=== PATIENT | female | born 1975 | race African-American/Black ===

== ENCOUNTER 2016-06-25 00:29 | Emergency (ER) | payer SELFPAY ==
[~2016-06-25] VITALS: Ht 160 cm; Wt 59.0 kg
[2016-06-25] MEDS ORDERED: IBUPROFEN 600MG TABLET PO ONE (06:00)
[2016-06-25 07:12] VITALS: BP 114/73
== END 2016-06-25 08:00 | disposition home or self-care (01) ==
LOC: ER 07:26
DX: M25.552 Pain in left hip (principal); M25.512 Pain in left shoulder; R07.89 Other chest pain; M79.644 Pain in right finger(s); F17.200 Nicotine dependence, unspecified, uncomplicated; V89.2XXA Person injured in unspecified motor-vehicle accident, traffic, initial encounter; Y93.89 Activity, other specified; Y92.89 Other specified places as the place of occurrence of the external cause; Y99.8 Other external cause status
CPT/HCPCS: 72040; 73030; 81025; 99284

== ENCOUNTER 2018-03-31 02:38 | Emergency (ER) | payer SELFPAY ==
[~2018-03-31] VITALS: Ht 157.5 cm; Wt 58.9 kg
[2018-03-31 02:41] VITALS: BP 115/88
== END 2018-03-31 08:11 | disposition left against medical advice (07) ==
LOC: ER 07:36
DX: R07.9 Chest pain, unspecified (principal); R51 Headache; R10.9 Unspecified abdominal pain; Z53.21 Procedure and treatment not carried out due to patient leaving prior to being seen by health care provider

== ENCOUNTER 2021-05-31 14:10 | Emergency (ER) | payer OTHER ==
[~2021-05-31] VITALS: Ht 167.6 cm; Wt 70.0 kg
[2021-05-31] MEDS ORDERED: MAGNESIUM/ALUMINUM HYDROXIDE/SIMETHICONE 30ML UDC PO STA (14:32)
[2021-05-31] MEDS ORDERED: SODIUM CHLORIDE 0.9% 1,000 ML IV ONE (14:45)
[2021-05-31 15:09] LABS: BASOPHILS % 0.3 % (0.0-2.0); EOSINOPHILS % 0.4 % (0.0-5.0); HEMATOCRIT. 34.7 % (36.0-48.0); HEMOGLOBIN. 11.9 g/dL (12.0-16.0); LYMPHOCYTES % 15.2 % (20.0-50.0); MEAN CORPUSCULAR VOLUME 90.4 fL (81.0-99.0); MEAN PLATELET VOLUME 9.3 fl (7.4-10.4); MONOCYTES % 3.6 % (2.0-8.0); NEUTROPHILS % 80.5 % (40.0-76.0); PLATELET 278 x1000/uL (130-400); RED BLOOD CELL COUNT 3.85 mill/uL (4.2-5.4); RED CELL DISTRIBUTION WIDTH 14.5 % (11.6-14.6)
[2021-05-31 15:24] LABS: CHLORIDE 103 mEq/L (98-107)
[2021-05-31 15:28] LABS: ETHANOL BLOOD < 10 mg/dL
[2021-05-31 15:35] LABS: HCG SCREEN NEGATIVE
[2021-05-31] MEDS ORDERED: POTASSIUM CHLORIDE 20MEQ TABLET SR PO ONE (15:45)
[2021-05-31] MEDS ORDERED: IBUP-2029 MT (15:58)
[2021-05-31] MEDS ORDERED: KETOROLAC 15MG/ML VIAL IV ONE (16:00)
[2021-05-31 16:05] VITALS: BP 150/72
[2021-05-31] MEDS ORDERED: ACETAMINOPHEN 325MG TABLET PO ONE (17:00)
== END 2021-05-31 18:43 | disposition home or self-care (01) ==
LOC: ER 14:10
DX: R10.33 Periumbilical pain (principal); R07.89 Other chest pain; R11.0 Nausea; E87.6 Hypokalemia; R03.0 Elevated blood-pressure reading, without diagnosis of hypertension
CPT/HCPCS: 36415; 71045; 74018; 80053; 80320; 83690; 84484; 84703; 85025; 93005; 96361; 96374; 99285; J1885; J7030; 99291; G0480

== ENCOUNTER 2023-06-14 16:29 | Emergency (ER) | payer OTHER ==
[~2023-06-14] VITALS: Ht 157.5 cm; Wt 65.0 kg
[~2023-06-14 16:29] MED LIST: IBUP-2029 MT
[2023-06-14 16:36] VITALS: O2SAT 97
[2023-06-14] MEDS ORDERED: CYCL10TA21 MT (17:18)
[2023-06-14] MEDS ORDERED: IBUP-2029 MT (17:18)
[2023-06-14 17:39] VITALS: BP 129/72; PULSE 107; RESP 20; TEMP 98.4
== END 2023-06-14 17:42 | disposition home or self-care (01) ==
LOC: ER 16:29
DX: M54.6 Pain in thoracic spine (principal); V99.XXXA Unspecified transport accident, initial encounter; Y93.89 Activity, other specified; Y92.89 Other specified places as the place of occurrence of the external cause; Y99.8 Other external cause status
CPT/HCPCS: 99281